=== PATIENT | male | born 1975 | race Caucasian/White ===

== ENCOUNTER → 2023-09-29 | Outpatient (CLI) | payer BC ==
--- NOTE | 2023-10-03 11:22 | MR ---
EXAMINATION TYPE: MR tib fib LT wo con DATE OF EXAM: 09/29/2023 COMPARISON: Outside radiographs not available for review HISTORY: 48-year-old male [id number] STRAIN MUSC/TEND POST GRP AT LOW LEG LEVE, Left posterior leg pain, swelling, limited movement. Gastrocnemius tendon rupture. TECHNIQUE: Multiplanar, multisequence images of the left tibia/fibula were obtained without IV contra st. Axial and coronal images of the contralateral side for comparison purposes. FINDINGS: There is edematous change scattered throughout the posterior calf musculature on the left. Tracking hemorrhagic fluid measuring 9 mm thick is present interposed between the medial gastrocnemiu s muscle and soleus musculature. This elongated collection spans 17.0 cm craniocaudal and 6.1 cm wide demonstrating heterogeneous T1 and T2 signal intensity including some bright T1 areas compatible wit h hemorrhagic fluid. Both knee and ankle relations appear grossly intact. No underlying acute or healing fracture or suspicious bone marrow replacement is seen. IMPRESSION: Hemorrhagic fluid tracking between the medial gastrocnemius and soleus musculature of the calf measur ing 17.0 cm craniocaudal, 6.1 cm wide, and 9 mm thick. Findings suggest myofascial tear versus less l ikely plantaris tendon rupture (tennis leg). Reactive patchy edema or muscle strain throughout the po sterior calf musculature. No underlying acute osseous abnormality seen.
== END | disposition home or self-care (01) ==
LOC: RADMRIMAIN 11:03
PROVIDERS: ATTEND Orthopaedic Surgery
DX: S86.112A Strain of other muscle(s) and tendon(s) of posterior muscle group at lower leg level, left leg, initial encounter (principal); M79.605 Pain in left leg; R60.0 Localized edema; X58.XXXA Exposure to other specified factors, initial encounter